=== PATIENT | female | born 1975 | race Caucasian/White ===

== ENCOUNTER 2019-04-19 08:35 | Inpatient (IN) | payer OTHER, MEDICAID ==
[2019-04-19] VITALS (9 sets, daily range): BP systolic 126–162; BP diastolic 91–117
[~2019-04-19] VITALS: Ht 162.6 cm; Wt 46.7 kg
[2019-04-19] MEDS ORDERED: SODIUM CHLORIDE 0.9% 1,000 ML IV ONE (09:03)
[2019-04-19] MEDS ORDERED: HYDRALAZINE 20MG/ML VIAL IV ONE (09:15)
[2019-04-19 09:23] LABS: BASOPHILS % 0.3 % (0.0-2.0); EOSINOPHILS % 0.6 % (0.0-5.0); HEMATOCRIT. 42.1 % (36.0-48.0); HEMOGLOBIN. 13.9 g/dL (12.0-16.0); LYMPHOCYTES % 9.8 % (20.0-50.0); MEAN CORPUSCULAR HEMOGLOBIN 27.4 pg (28.0-32.0); MEAN CORPUSCULAR VOLUME 82.9 fL (81.0-99.0); MEAN PLATELET VOLUME 9.8 fl (7.4-10.4); MONOCYTES % 5.6 % (2.0-8.0); NEUTROPHILS % 83.7 % (40.0-76.0); PLATELET 224 x1000/uL (130-400); RED BLOOD CELL COUNT 5.08 mill/uL (4.2-5.4)
[2019-04-19 09:29] LABS: BG BASE EXCESS -4.7 mmol/L (-2.0-2.0); BG CARBOXYHEMOGLOBIN 1.1 % (0.5-1.5); BG DEOXYHEMOGLOBIN 15.3 % (0.0-5.0); BG FRACTION INSPIRED OXYGEN 21; BG HCO3 ACT 19.3 mmol/L (22.0-26.0); BG METHEMOGLOBIN 0.1 % (0.0-1.5); BG OXYGEN SATURATION 84.5 % (92.0-98.5); BG OXYHEMOGLOBIN 83.5 % (94.0-97.0); BG PCO2 32.5 mmHg (35.0-45.0); BG PH 7.391 (7.350-7.450); BG PO2 49.9 mmHg (75.0-100.0); BG SAMPLE SITE RIGHT BRACHIAL; BG TOTAL HEMOGLOBIN 13.4 g/dL (12.0-18.0); BG VENT MODE ROOM AIR
[2019-04-19 09:34] LABS: CHLORIDE 105 mEq/L (98-107)
[2019-04-19 09:40] LABS: BETA HYDROXYBUTYRATE 0.2 mMol/L (0.0-0.3)
[2019-04-19] MEDS ORDERED: INSULIN REGULAR (HUMULIN R) 300UNITS/3ML IV ONE (10:15)
[2019-04-19 10:16] LABS: HCG SCREEN NEGATIVE
[2019-04-19] MEDS ORDERED: IOHEXOL-350 100 ML BOTTLE ONE (10:27)
[2019-04-19] MEDS ORDERED: ASPIRIN 325MG EC TABLET PO ONE (11:15)
[2019-04-19] MEDS ORDERED: DEXTROSE 50% WATER 50ML SYRINGE IV PRN (16:30)
[2019-04-19] MEDS ORDERED: CLONIDINE 0.1MG TABLET PO PRN ×2 (16:30→22:45)
[2019-04-19] MEDS: BLOOD SUGAR DIAGNOSTIC STRIP TEST SCH ×2 (16:47→21:00)
[2019-04-19] MEDS: INSULIN LISPRO 100 UNITS/ML SUBCUT SCH ×2 (18:03→22:02)
[2019-04-19] MEDS: AMLODIPINE 10MG TABLET PO SCH (21:00)
[2019-04-19] MEDS: KETOROLAC 30MG/ML VIAL IV PRN (22:06)
[2019-04-19] MEDS ORDERED: ACETAMINOPHEN 325MG TABLET PO PRN (22:45)
[2019-04-19] MEDS ORDERED: FUROSEMIDE 40MG/4ML VIAL IVP NR (22:45)
[2019-04-19] MEDS ORDERED: ONDANSETRON HCL 4MG/2ML INJ IV PRN (22:45)
[2019-04-19] MEDS ORDERED: IPRATROPIUM/ALBUTEROL 0.5-3(2.5)MG/3ML NEB HHN PRN (22:45)
[2019-04-19] MEDS ORDERED: DIPHENHYDRAMINE 50MG/ML VIAL IV PRN (22:45)
[2019-04-19] MEDS ORDERED: INSULIN GLARGINE UD 100 UNITS/ML SYR SUBCUT SCH (22:45)
[2019-04-19] MEDS ORDERED: MAGNESIUM/ALUMINUM HYDROXIDE/SIMETHICONE 30ML UDC PO PRN (22:45)
[2019-04-19] MEDS: METHYLPREDNISOLONE SOD SUCC 40 MG/ML VIAL IV SCH (23:23)
[2019-04-20] VITALS (12 sets, daily range): BP systolic 103–152; BP diastolic 28–96
[2019-04-20] MEDS ORDERED: INSULIN GLARGINE UD 100 UNITS/ML SYR SUBCUT SCH (01:00)
[2019-04-20] MEDS: IPRATROPIUM/ALBUTEROL 0.5-3(2.5)MG/3ML NEB HHN SCH ×4 (01:25→21:44)
[2019-04-20] MEDS: SODIUM CHLORIDE 0.9% INJ 3ML FLUSH IVF SCH ×3 (06:47→21:48)
[2019-04-20] MEDS: BLOOD SUGAR DIAGNOSTIC STRIP TEST SCH ×4 (06:50→20:20)
[2019-04-20 06:57] LABS: CHLORIDE 105 mEq/L (98-107)
[2019-04-20 07:01] LABS: HEMOGLOBIN. 13.2 g/dL (12.0-16.0); MEAN CORPUSCULAR HEMOGLOBIN 27.1 pg (28.0-32.0); MEAN CORPUSCULAR VOLUME 82.4 fL (81.0-99.0); MEAN PLATELET VOLUME 10.3 fl (7.4-10.4); PLATELET 208 x1000/uL (130-400); RED BLOOD CELL COUNT 4.86 mill/uL (4.2-5.4); RED CELL DISTRIBUTION WIDTH 13.3 % (11.6-14.6)
[2019-04-20 07:09] LABS: PHOSPHORUS 4.1 mg/dL (2.5-4.9)
[2019-04-20 08:19] LABS: OPIATES URINE SCREEN NEGATIVE (NEGATIVE); PHENCYCLIDINE URINE SCREEN NEGATIVE (NEGATIVE)
[2019-04-20 08:20] LABS: *BARBITURATES SCREEN URINE NEGATIVE (NEGATIVE); *BENZODIAZEPINES SCREEN URINE NEGATIVE (NEGATIVE); METHADONE URINE SCREEN NEGATIVE (NEGATIVE)
[2019-04-20 08:28] LABS: *AMPHETAMINES SCREEN URINE PRESUMTIVE POSITIVE (NEGATIVE); *COCAINE SCREEN URINE PRESUMTIVE POSITIVE (NEGATIVE); CANNABINOID URINE SCREEN PRESUMTIVE POSITIVE (NEGATIVE)
[2019-04-20] MEDS: METHYLPREDNISOLONE SOD SUCC 40 MG/ML VIAL IV SCH ×3 (08:56→23:23)
[2019-04-20] MEDS: ENOXAPARIN 30MG/0.3ML SYR SUBCUT SCH (08:56)
[2019-04-20] MEDS: INSULIN LISPRO 100 UNITS/ML SUBCUT SCH ×4 (08:57→20:29)
[2019-04-20] MEDS: AMLODIPINE 10MG TABLET PO SCH (08:58)
[2019-04-20] MEDS: KETOROLAC 30MG/ML VIAL IV PRN ×2 (08:59→22:33)
[2019-04-20 10:51] LABS: PLATELET ESTIMATE NORMAL
[2019-04-20] MEDS ORDERED: MAGNESIUM 1 G PREMIX 100 ML IV NR (13:00)
[2019-04-20] MEDS: METFORMIN HCL 500MG TABLET PO SCH (17:51)
[2019-04-20] MEDS: GUAIFENESIN 600MG ER TABLET PO SCH (20:20)
[2019-04-20] MEDS ORDERED: PROMETHAZINE/DEXTROMETHORPHAN 6.25-15MG/5ML BOTTLE 120ML PO PRN (21:00)
[2019-04-20] MEDS: INSULIN GLARGINE UD 100 UNITS/ML SYR SUBCUT SCH (21:49)
[2019-04-21] VITALS (12 sets, daily range): BP systolic 113–150; BP diastolic 85–108
[2019-04-21] MEDS: IPRATROPIUM/ALBUTEROL 0.5-3(2.5)MG/3ML NEB HHN SCH ×4 (01:56→21:49)
[2019-04-21] MEDS: SODIUM CHLORIDE 0.9% INJ 3ML FLUSH IVF SCH ×3 (06:36→22:00)
[2019-04-21] MEDS: BLOOD SUGAR DIAGNOSTIC STRIP TEST SCH ×4 (06:36→21:00)
[2019-04-21] MEDS: METFORMIN HCL 500MG TABLET PO SCH ×2 (08:21→18:15)
[2019-04-21] MEDS: AMLODIPINE 10MG TABLET PO SCH (08:21)
[2019-04-21] MEDS: ENOXAPARIN 30MG/0.3ML SYR SUBCUT SCH (08:21)
[2019-04-21] MEDS: GUAIFENESIN 600MG ER TABLET PO SCH ×2 (08:21→21:58)
[2019-04-21] MEDS: METHYLPREDNISOLONE SOD SUCC 40 MG/ML VIAL IV SCH (08:27)
[2019-04-21] MEDS: INSULIN LISPRO 100 UNITS/ML SUBCUT SCH ×4 (08:27→22:14)
[2019-04-21] MEDS: FUROSEMIDE 40MG/4ML VIAL IVP SCH ×2 (12:57→21:58)
[2019-04-21] MEDS ORDERED: CARVEDILOL 6.25 MG TABLET PO SCH (21:00)
[2019-04-21] MEDS: LOSARTAN POTASSIUM 50 MG TABLET PO SCH (21:58)
[2019-04-21] MEDS: KETOROLAC 30MG/ML VIAL IV PRN (22:00)
[2019-04-21] MEDS: INSULIN GLARGINE UD 100 UNITS/ML SYR SUBCUT SCH (22:06)
[2019-04-22] VITALS (12 sets, daily range): BP systolic 117–149; BP diastolic 66–115
[2019-04-22] MEDS: IPRATROPIUM/ALBUTEROL 0.5-3(2.5)MG/3ML NEB HHN SCH ×4 (02:33→20:45)
[2019-04-22] MEDS: METFORMIN HCL 500MG TABLET PO SCH ×2 (06:08→17:24)
[2019-04-22] MEDS: INSULIN LISPRO 100 UNITS/ML SUBCUT SCH ×4 (06:08→21:00)
[2019-04-22] MEDS: BLOOD SUGAR DIAGNOSTIC STRIP TEST SCH ×4 (06:08→21:31)
[2019-04-22] MEDS: SODIUM CHLORIDE 0.9% INJ 3ML FLUSH IVF SCH ×3 (06:08→21:48)
[2019-04-22] MEDS: GUAIFENESIN 600MG ER TABLET PO SCH ×2 (08:26→21:47)
[2019-04-22] MEDS: LOSARTAN POTASSIUM 50 MG TABLET PO SCH ×2 (08:26→21:47)
[2019-04-22] MEDS: AMLODIPINE 10MG TABLET PO SCH (08:26)
[2019-04-22] MEDS: FUROSEMIDE 40MG/4ML VIAL IVP SCH ×2 (08:26→21:47)
[2019-04-22] MEDS: ENOXAPARIN 30MG/0.3ML SYR SUBCUT SCH (08:27)
[2019-04-22 10:05] LABS: CHLORIDE 103 mEq/L (98-107)
[2019-04-22 10:10] LABS: BASOPHILS % 0.2 % (0.0-2.0); EOSINOPHILS % 0.4 % (0.0-5.0); HEMATOCRIT. 38.7 % (36.0-48.0); HEMOGLOBIN. 12.6 g/dL (12.0-16.0); LYMPHOCYTES % 14.8 % (20.0-50.0); MEAN CORPUSCULAR HEMOGLOBIN 26.8 pg (28.0-32.0); MEAN CORPUSCULAR VOLUME 82.2 fL (81.0-99.0); MEAN PLATELET VOLUME 10.2 fl (7.4-10.4); MONOCYTES % 4.5 % (2.0-8.0); NEUTROPHILS % 80.1 % (40.0-76.0); PLATELET 228 x1000/uL (130-400); RED BLOOD CELL COUNT 4.71 mill/uL (4.2-5.4); RED CELL DISTRIBUTION WIDTH 13.1 % (11.6-14.6)
[2019-04-22 10:12] LABS: PHOSPHORUS 4.8 mg/dL (2.5-4.9)
[2019-04-22 10:15] LABS: CREATINE KINASE 37 IU/L (26-192)
[2019-04-22 10:17] LABS: CREATINE KINASE MB FRACTION 4.8 ng/mL (0.5-3.6)
[2019-04-22] MEDS ORDERED: MAGNESIUM 2 G PREMIX 50 ML IV NR (16:00)
[2019-04-22] MEDS: INSULIN GLARGINE UD 100 UNITS/ML SYR SUBCUT SCH (22:51)
[2019-04-23] VITALS (12 sets, daily range): BP systolic 98–139; BP diastolic 68–85
[2019-04-23] MEDS: IPRATROPIUM/ALBUTEROL 0.5-3(2.5)MG/3ML NEB HHN SCH ×4 (02:18→20:46)
[2019-04-23] MEDS: SODIUM CHLORIDE 0.9% INJ 3ML FLUSH IVF SCH ×3 (05:51→22:27)
[2019-04-23] MEDS: BLOOD SUGAR DIAGNOSTIC STRIP TEST SCH ×4 (06:32→21:16)
[2019-04-23] MEDS: FUROSEMIDE 40MG/4ML VIAL IVP SCH ×2 (09:16→22:23)
[2019-04-23] MEDS: GUAIFENESIN 600MG ER TABLET PO SCH ×2 (09:16→22:23)
[2019-04-23] MEDS: METFORMIN HCL 500MG TABLET PO SCH ×2 (09:17→18:08)
[2019-04-23] MEDS: AMLODIPINE 10MG TABLET PO SCH (09:17)
[2019-04-23] MEDS: LOSARTAN POTASSIUM 50 MG TABLET PO SCH ×2 (09:18→21:00)
[2019-04-23] MEDS: INSULIN LISPRO 100 UNITS/ML SUBCUT SCH ×4 (09:19→22:25)
[2019-04-23] MEDS: ENOXAPARIN 30MG/0.3ML SYR SUBCUT SCH (10:55)
[2019-04-23 11:32] LABS: BASOPHILS % 0.2 % (0.0-2.0); EOSINOPHILS % 0.6 % (0.0-5.0); HEMATOCRIT. 41.7 % (36.0-48.0); HEMOGLOBIN. 13.9 g/dL (12.0-16.0); LYMPHOCYTES % 14.7 % (20.0-50.0); MEAN CORPUSCULAR HEMOGLOBIN 27.3 pg (28.0-32.0); MEAN CORPUSCULAR VOLUME 81.9 fL (81.0-99.0); MEAN PLATELET VOLUME 10.5 fl (7.4-10.4); MONOCYTES % 5.3 % (2.0-8.0); NEUTROPHILS % 79.2 % (40.0-76.0); PLATELET 241 x1000/uL (130-400); RED BLOOD CELL COUNT 5.09 mill/uL (4.2-5.4); RED CELL DISTRIBUTION WIDTH 13.1 % (11.6-14.6)
[2019-04-23 11:39] LABS: CHLORIDE 99 mEq/L (98-107)
[2019-04-23 14:21] LABS: HEPATITIS B SURFACE ANTIGEN NEGATIVE
[2019-04-23] MEDS: INSULIN GLARGINE UD 100 UNITS/ML SYR SUBCUT SCH (22:26)
[2019-04-24] VITALS (8 sets, daily range): BP systolic 100–140; BP diastolic 66–140
[2019-04-24] MEDS: IPRATROPIUM/ALBUTEROL 0.5-3(2.5)MG/3ML NEB HHN SCH ×3 (01:12→14:28)
[2019-04-24] MEDS: SODIUM CHLORIDE 0.9% INJ 3ML FLUSH IVF SCH (06:25)
[2019-04-24] MEDS: BLOOD SUGAR DIAGNOSTIC STRIP TEST SCH ×2 (06:26→11:44)
[2019-04-24 06:59] LABS: BASOPHILS % 0.2 % (0.0-2.0); EOSINOPHILS % 1.4 % (0.0-5.0); HEMATOCRIT. 41.1 % (36.0-48.0); HEMOGLOBIN. 13.6 g/dL (12.0-16.0); LYMPHOCYTES % 24.6 % (20.0-50.0); MEAN CORPUSCULAR HEMOGLOBIN 26.9 pg (28.0-32.0); MEAN CORPUSCULAR VOLUME 81.6 fL (81.0-99.0); MEAN PLATELET VOLUME 9.7 fl (7.4-10.4); MONOCYTES % 7.7 % (2.0-8.0); NEUTROPHILS % 66.1 % (40.0-76.0); PLATELET 258 x1000/uL (130-400); RED BLOOD CELL COUNT 5.04 mill/uL (4.2-5.4); RED CELL DISTRIBUTION WIDTH 12.9 % (11.6-14.6)
[2019-04-24 07:08] LABS: CHLORIDE 99 mEq/L (98-107)
[2019-04-24] MEDS: METFORMIN HCL 500MG TABLET PO SCH (07:42)
[2019-04-24] MEDS: INSULIN LISPRO 100 UNITS/ML SUBCUT SCH ×2 (07:43→11:49)
[2019-04-24] MEDS: AMLODIPINE 10MG TABLET PO SCH (08:57)
[2019-04-24] MEDS: ENOXAPARIN 30MG/0.3ML SYR SUBCUT SCH (08:57)
[2019-04-24] MEDS: LOSARTAN POTASSIUM 50 MG TABLET PO SCH (08:57)
[2019-04-24] MEDS: GUAIFENESIN 600MG ER TABLET PO SCH (08:57)
[2019-04-24] MEDS: FUROSEMIDE 40MG/4ML VIAL IVP SCH (08:57)
== END 2019-04-24 14:30 | disposition home or self-care (01) | DRG 816 ==
LOC: ER 08:35 → 3WST 11:04 → EDBEDREQSVC 11:05 → EDBEDREQ 11:05 → EDBEDREQTM 11:05 → ENRESERV 13:08
PROVIDERS: ADMIT Internal Medicine; ATTEND Internal Medicine
DX: T40.5X1A Poisoning by cocaine, accidental (unintentional), initial encounter (principal); J96.01 Acute respiratory failure with hypoxia; I50.23 Acute on chronic systolic (congestive) heart failure; J18.9 Pneumonia, unspecified organism; I11.0 Hypertensive heart disease with heart failure; E87.2 Acidosis; I27.20 Pulmonary hypertension, unspecified; T40.7X1A Poisoning by cannabis (derivatives), accidental (unintentional), initial encounter; Y92.89 Other specified places as the place of occurrence of the external cause; E11.65 Type 2 diabetes mellitus with hyperglycemia; I16.0 Hypertensive urgency; D17.71 Benign lipomatous neoplasm of kidney; Z91.19 Patient's noncompliance with other medical treatment and regimen; F14.10 Cocaine abuse, uncomplicated; F15.10 Other stimulant abuse, uncomplicated; Z82.49 Family history of ischemic heart disease and other diseases of the circulatory system; I42.0 Dilated cardiomyopathy; I69.354 Hemiplegia and hemiparesis following cerebral infarction affecting left non-dominant side; Z98.891 History of uterine scar from previous surgery; Z79.4 Long term (current) use of insulin
CPT/HCPCS: 36415; 36600; 71045; 71275; 80048; 80305; 82010; 82375; 82533; 82550; 82553; 82805; 82962; 83036; 83735; 83880; 84100; 84484; 84703; 85379; 86703; 87804; 93005; 93306; 94640; 96374; 97162; 99291; J0360; J1650; J1815; J1885; J1940; J2920; J3475; J7030; J7620; Q9967